=== PATIENT | female | born 1935 | race Caucasian/White ===

== ENCOUNTER 2023-10-23 21:38 | Inpatient (IN) | payer MEDICAID, MEDICARE, OTHER, SELFPAY ==
[2023-10-23] MEDS ORDERED: dilTIAZem 25 MG/5 ML VIAL ONE (22:16)
[2023-10-23 22:26] LABS: #Basophils 0.01 10x3/uL (0.0-0.2); #Monocytes 0.91 10x3/uL (0.0-1.1); #Neutrophils 4.64 10x3/uL (1.5-8.4); %Basophils 0.1 % (0.0-2.0); %Lymphocytes 25.4 % (18.0-47.0); %Monocytes 12.2 % (0.0-10.0); Hematocrit 33.7 % (34.9-44.5); Hemoglobin 11.2 g/dL (12.0-15.5); Mean Corpuscular HGB CONC 33.2 g/dL (32.0-36.0); Mean Corpuscular Volume 96.3 fL (81.6-98.3); Mean Platelet Volume 8.8 fL (7.4-10.4); Platelet Count 368 10x3/uL (150-450); RBC Distribution Width 14.6 % (11.5-14.5); White Blood Cell (WBC) Count 7.5 10x3/uL (3.5-10.5)
[2023-10-23 22:35] LABS: INR-International Normal Ratio 1.1; PTT 30.4 sec (22.0-33.0); Prothrombin Time 11.4 sec (9.5-12.1)
[2023-10-23 22:40] LABS: ALT (SGPT) 49 U/L (8-55); AST (SGOT) 37 U/L (5-34); Albumin 3.4 g/dL (3.4-4.8); Alkaline Phosphatase 102 U/L (40-110); Anion Gap 16 mmol/L (10-20); BUN (Urea Nitrogen) 19 mg/dL (9.8-20.1); Bilirubin, Total 0.5 mg/dL (0.2-1.2); Calc. Creatinine Clearance 0 mL/min (70-130); Carbon Dioxide 25 mmol/L (23-31); Chloride 98 mmol/L (98-107); Estimated GFR 43; Globulin 4.1 g/dL (2.4-3.5); Glucose 138 mg/dL (83-110); Magnesium 1.5 mg/dL (1.6-2.6); Potassium 3.9 mmol/L (3.5-5.1); Protein, Total 7.5 g/dL (5.8-8.1); Sodium 135 mmol/L (136-145)
[2023-10-23] MEDS ORDERED: Magnesium 2 GM/50 ML BAG (IN WATER) ONE (22:49)
[2023-10-23] MEDS ORDERED: dilTIAZem 125 MG/25 ML SDV ONE (22:52)
[2023-10-23 23:00] LABS: Critical Call Chemistry ERS.JAH @2300
[2023-10-23] MEDS ORDERED: Furosemide 40 MG (4 mL) VIAL ONE (23:16)
[2023-10-23 23:34] LABS: Calcium 9.5 mg/dL (7.6-10.4)
[2023-10-23] MEDS ORDERED: Guaifenesin DM 100-10/5 ML UDCUP PO PRN (23:55)
[2023-10-23] MEDS ORDERED: Acetaminophen 325 MG TAB PO PRN (23:55)
[2023-10-23] MEDS ORDERED: Calcium Carbonate 500 MG ChewTAB PO PRN (23:55)
[2023-10-23] MEDS ORDERED: Dextrose 50% Abboject 50 ML SYRINGE SLOW IVP PRN (23:55)
[2023-10-23] MEDS ORDERED: Glucagon 1 MG/ML KIT IM PRN (23:55)
[2023-10-23] MEDS ORDERED: Senokot S 8.6-50 MG TAB PO PRN (23:55)
[2023-10-23] MEDS ORDERED: Dextrose 5% in Water 1,000 ML IV PRN (23:55)
[2023-10-23] MEDS ORDERED: HumaLOG 300 UNITS/3 ML VIAL SC PRN (23:55)
[2023-10-24 00:29] LABS: Troponin I 0.017 ng/mL (< 0.028)
[2023-10-24 03:50] LABS: #Basophils 0.01 10x3/uL (0.0-0.2); #Eosinphils 0.12 10x3/uL (0.0-0.5); #Monocytes 0.81 10x3/uL (0.0-1.1); #Neutrophils 3.75 10x3/uL (1.5-8.4); %Basophils 0.1 % (0.0-2.0); %Eosinophils 1.8 % (0.0-6.0); %Lymphocytes 30.1 % (18.0-47.0); %Neutrophils 55.7 % (40.0-75.0); Hematocrit 30.2 % (34.9-44.5); Hemoglobin 9.8 g/dL (12.0-15.5); Mean Corpuscular HGB CONC 32.5 g/dL (32.0-36.0); Mean Corpuscular Hemoglobin 31.6 pg (27.0-33.0); Mean Corpuscular Volume 97.4 fL (81.6-98.3); Mean Platelet Volume 8.7 fL (7.4-10.4); Platelet Count 330 10x3/uL (150-450); RBC Distribution Width 14.5 % (11.5-14.5); White Blood Cell (WBC) Count 6.7 10x3/uL (3.5-10.5)
[2023-10-24 04:14] LABS: Anion Gap 14 mmol/L (10-20); BUN (Urea Nitrogen) 17 mg/dL (9.8-20.1); Calc. Creatinine Clearance 34 mL/min (70-130); Carbon Dioxide 27 mmol/L (23-31); Chloride 99 mmol/L (98-107); Estimated GFR 48; Glucose 130 mg/dL (83-110); Potassium 3.5 mmol/L (3.5-5.1); Sodium 136 mmol/L (136-145); Troponin I 0.013 ng/mL (< 0.028)
[2023-10-24] MEDS: Furosemide 40 MG (4 mL) VIAL SLOW IVP SCH (05:45)
[2023-10-24] MEDS: Potassium Chloride 20 MEQ TAB PO SCH (06:55)
[2023-10-24 07:57] LABS: Troponin I 0.016 ng/mL (< 0.028)
[2023-10-24] MEDS: Apixaban 2.5 MG TAB PO SCH (08:37)
[2023-10-24] MEDS: metFORMIN 500 MG TAB PO SCH (08:37)
[2023-10-24] MEDS: Cyanocobalamin (Vitamin B-12) 1,000 MCG TAB PO SCH (08:38)
[2023-10-24] MEDS: Magnesium Oxide 400 MG TAB PO SCH (08:39)
[2023-10-24] MEDS: Pantoprazole DR 40 MG TAB PO SCH (08:39)
[2023-10-24] MEDS: Cephalexin 250 MG CAP PO SCH (08:39)
[2023-10-24] MEDS: Magnesium 2 GM/50 ML(in water) 2 GM in Premix 1 BAG IVPB SCH (10:05)
[2023-10-24] MEDS: dilTIAZem 125 MG in Sodium Chloride 0.9% 100 ML IVPB SCH (10:25)
[2023-10-24 10:33] LABS: Bilirubin Neg (Negative); Blood, Urine Negative (Negative); Clarity Clear (Clear); Glucose, Urine (Dipstick) Normal (Negative); Ketone, Urine Negative (Negative); Leukocyte 100 (Negative); Nitrite Negative (Negative); Protein, Urine (Dipstick) Negative (Neg-Trace); Specific Gravity, Urine 1.005 (1.005-1.030); Urobilinogen Normal mg/dL (Less than 2)
[2023-10-24 10:51] LABS: Bacteria/HPF 1+ HPF (None Seen); CAUTI Indications for Culture Dysuria,urgency,freq; RBC/HPF 0-3 HPF (0-3)
[2023-10-24 10:52] LABS: Urine Culture Reflex No No
[2023-10-24] MEDS ORDERED: Electrolyte Replacement Protocol 1 EACH FS PRN (11:25)
[2023-10-24] MEDS: Digoxin 0.5 MG/2 ML AMP SLOW IVP SCH (13:54)
[2023-10-24] MEDS: Metoprolol Tartrate 25 MG TAB PO SCH (17:07)
[2023-10-24] MEDS: Carvedilol 6.25 MG TAB PO SCH (17:48)
[2023-10-24] MEDS: dilTIAZem CD 120 MG CAP PO SCH (20:02)
[2023-10-24] MEDS: Dronedarone HCl 400 MG TAB PO SCH (20:18)
[2023-10-25 04:10] LABS: Magnesium 1.9 mg/dL (1.6-2.6)
[2023-10-25 07:42] VITALS: BMI 24.7
[2023-10-25] MEDS: Digoxin 0.125 MG TAB PO SCH (09:55)
[2023-10-25] MEDS: Losartan 25 MG TAB PO SCH (09:55)
[2023-10-25] MEDS: Dronedarone HCl 400 MG TAB PO SCH (09:55)
[2023-10-25] MEDS: dilTIAZem CD 120 MG CAP PO SCH (09:56)
[2023-10-25] MEDS: Magnesium 2 GM/50 ML(in water) 2 GM in Premix 1 BAG IVPB SCH (09:56)
[2023-10-25] MEDS: Ondansetron PF 4 MG/2 ML Vial IVP PRN (10:08)
[2023-10-25 11:29] LABS: Hematocrit 33.3 % (34.9-44.5); Hemoglobin 10.9 g/dL (12.0-15.5); Platelet Count 324 10x3/uL (150-450)
[2023-10-25 11:44] LABS: Magnesium 2.4 mg/dL (1.6-2.6)
[2023-10-26 04:29] LABS: Hematocrit 31.7 % (34.9-44.5); Hemoglobin 10.5 g/dL (12.0-15.5); Platelet Count 314 10x3/uL (150-450)
[2023-10-26 04:42] LABS: Anion Gap 13 mmol/L (10-20); BUN (Urea Nitrogen) 24 mg/dL (9.8-20.1); Calc. Creatinine Clearance 23 mL/min (70-130); Calcium 8.9 mg/dL (7.8-10.44); Carbon Dioxide 33 mmol/L (23-31); Chloride 93 mmol/L (98-107); Estimated GFR 32; Glucose 112 mg/dL (83-110); Potassium 4.1 mmol/L (3.5-5.1); Sodium 135 mmol/L (136-145)
[2023-10-26] MEDS: Furosemide 40 MG TAB PO SCH (11:12)
[2023-10-26] MEDS: Promethazine HCl 12.5 MG, Admixture Fee 1 EACH in Sodium Chloride 0.9% 50 ML IVPB PRN (18:45)
[2023-10-27 04:30] LABS: Anion Gap 15 mmol/L (10-20); BUN (Urea Nitrogen) 27 mg/dL (9.8-20.1); Calc. Creatinine Clearance 23 mL/min (70-130); Carbon Dioxide 33 mmol/L (23-31); Chloride 91 mmol/L (98-107); Estimated GFR 32; Glucose 107 mg/dL (83-110); Potassium 4.4 mmol/L (3.5-5.1); Sodium 135 mmol/L (136-145)
[2023-10-27 08:21] VITALS: BMI 23.3
[2023-10-27] MEDS: Potassium Chloride 10 MEQ in Dextrose 5 % And 0.9 % NaCl 1,000 ML IV SCH (15:13)
[2023-10-27] MEDS: Megestrol Acetate 400 MG/10 ML UDCUP PO SCH (15:17)
[2023-10-28 05:34] LABS: Anion Gap 14 mmol/L (10-20); BUN (Urea Nitrogen) 32 mg/dL (9.8-20.1); Calc. Creatinine Clearance 20 mL/min (70-130); Calcium 8.9 mg/dL (7.8-10.44); Carbon Dioxide 31 mmol/L (23-31); Chloride 94 mmol/L (98-107); Estimated GFR 30; Glucose 128 mg/dL (83-110); Potassium 4.2 mmol/L (3.5-5.1); Sodium 135 mmol/L (136-145)
[2023-10-28] MEDS: dilTIAZem CD 120 MG CAP PO SCH (09:18)
[2023-10-28] MEDS: Megestrol Acetate 400 MG/10 ML UDCUP PO SCH (11:14)
[2023-10-28] MEDS: Nystatin 500,000 UNITS/5 ML UDCUP SSW SCH ×2 (12:04→17:43)
[2023-10-29 05:44] LABS: Hemoglobin 11.8 g/dL (12.0-15.5); Platelet Count 345 10x3/uL (150-450)
[2023-10-29 05:55] LABS: Phosphorus 3.4 mg/dL (2.3-4.7)
[2023-10-29 05:56] LABS: Anion Gap 16 mmol/L (10-20); BUN (Urea Nitrogen) 31 mg/dL (9.8-20.1); Calc. Creatinine Clearance 20 mL/min (70-130); Calcium 9.3 mg/dL (7.8-10.44); Carbon Dioxide 33 mmol/L (23-31); Chloride 92 mmol/L (98-107); Estimated GFR 29; Glucose 91 mg/dL (83-110); Magnesium 1.8 mg/dL (1.6-2.6); Potassium 4.2 mmol/L (3.5-5.1); Sodium 137 mmol/L (136-145)
[2023-10-29] MEDS: Magnesium 2 GM/50 ML(in water) 2 GM in Premix 1 BAG IVPB SCH (08:36)
[2023-10-30] MEDS ORDERED: metFORMIN 500 MG TAB PO SCH (08:00)
[2023-10-30 09:03] VITALS: BP 129/59; TEMP 98.3
[2023-10-30 09:59] LABS: Anion Gap 18 mmol/L (10-20); Carbon Dioxide 30 mmol/L (23-31); Chloride 92 mmol/L (98-107); Potassium 4.3 mmol/L (3.5-5.1); Sodium 136 mmol/L (136-145)
[2023-10-30 10:00] LABS: BUN (Urea Nitrogen) 38 mg/dL (9.8-20.1); Calc. Creatinine Clearance 19 mL/min (70-130); Calcium 9.5 mg/dL (7.6-10.4); Estimated GFR 28; Glucose 96 mg/dL (83-110); Magnesium 2.2 mg/dL (1.6-2.6)
== END 2023-10-30 10:23 | DRG 308 ==
LOC: CSHERS 21:38 → CSHTELE 23:49
PROVIDERS: ADMIT Student in an Organized Health Care Education/Training Program; ATTEND Family Medicine
DX: I48.19 Other persistent atrial fibrillation (principal); I50.43 Acute on chronic combined systolic (congestive) and diastolic (congestive) heart failure; J96.01 Acute respiratory failure with hypoxia; B37.0 Candidal stomatitis; I13.0 Hypertensive heart and chronic kidney disease with heart failure and stage 1 through stage 4 chronic kidney disease, or unspecified chronic kidney disease; E83.42 Hypomagnesemia; Z66 Do not resuscitate; E11.9 Type 2 diabetes mellitus without complications; I48.91 Unspecified atrial fibrillation; K21.9 Gastro-esophageal reflux disease without esophagitis; D53.9 Nutritional anemia, unspecified; E87.70 Fluid overload, unspecified; I49.5 Sick sinus syndrome; R62.7 Adult failure to thrive; N18.30 Chronic kidney disease, stage 3 unspecified; R63.0 Anorexia; Z85.53 Personal history of malignant neoplasm of renal pelvis; Z90.710 Acquired absence of both cervix and uterus; Z68.23 Body mass index [BMI] 23.0-23.9, adult; Z79.899 Other long term (current) drug therapy
CPT/HCPCS: 36415; 36416; 71045; 80048; 80053; 81001; 83735; 83880; 84100; 84132; 84443; 84484; 85014; 85018; 85025; 85049; 85610; 85730; 93005; 93306; 94760; 94762; 96365; 96368; 96375; 96376; J1160; J1940; J2405; J2550; J3475; J3480; J3490; J7042